=== PATIENT | female | born 1985 | race Caucasian/White ===

== ENCOUNTER 2019-05-17 01:34 | Emergency (ER) | payer SELFPAY ==
[~2019-05-17] VITALS: Ht 167.6 cm; Wt 60.3 kg
[2019-05-17 01:40] VITALS: Ht 167.6 cm; Wt 60.3 kg
[2019-05-17 02:14] LABS: BASOPHIL % 0.5 % (0-2); PLATELET COUNT 240 x10^3mcL (130-400); RED CELL DISTRIBUTION WIDTH 12.2 % (11.5-14.5)
[2019-05-17 02:17] LABS: CALCIUM 9.3 mg/dL (8.5-10.1); CARBON DIOXIDE 22.3 mmol/L (21-32); CHLORIDE SERUM 105 mmol/L (98-107); CREATININE SERUM 0.9 mg/dL (0.6-1.0); GFR1 > 60 mL/min; GLUCOSE SERUM 95 mg/dL (74-106); POTASSIUM SERUM 3.8 mmol/L (3.5-5.1); SODIUM SERUM 140 mmol/L (136-145)
[2019-05-17 02:22] LABS: ALBUMIN 3.7 g/dL (3.4-5.0); ALKALINE PHOSPHATASE 51 U/L (46-116); ALT/SGPT 31 U/L (14-59); AST/SGOT 16 U/L (15-37); TOTAL PROTEIN, SERUM 7.2 g/dL (6.4-8.2)
[2019-05-17 03:38] VITALS: BP 137/81
== END 2019-05-17 03:38 | disposition home or self-care (01) ==
LOC: ED 01:34
PROVIDERS: Emergency Medicine
DX: R06.00 Dyspnea, unspecified (principal); R07.89 Other chest pain
CPT/HCPCS: 36415; 85378; J1885; J7512; J7620; Q0092